=== PATIENT | female | born 1990 | race Caucasian/White ===

== ENCOUNTER 2016-12-03 13:35 | Emergency (ER) | payer SELFPAY ==
--- NOTE | 2016-12-15 21:14 | ER ---
ADMIT: 12/03/2016 RM/LOC: ER [facility] MR#: [id number] [facility] [address] [place], [place] [id number] RANDELL PLEITEZ [address] [place] [address] Emergency Room Report SEX: F AGE: 26 : 1990 DATE: 12/03/2016 ADDENDUM: CHIEF COMPLAINT: Anxiety. HISTORY OF PRESENT ILLNESS: This is a 26-year-old, who was picked up by the police. She had high blood pressure when they were checking her in, so brought her into the emergency room. Upon arrival, her blood pressure was a 122/60 with a pulse of 122, temp 98.6, respirations 18, and sats 98% on room air. She denies any symptoms, just said she was very anxious. She has a history of anxiety. She has been cleared to go to [facility]. CLINICAL IMPRESSION: Anxiety. GIDEON Haynes / Thompson Jeong MD / yokasta JOB #: [id number] CC: Thompson Jeong MD, Attending Physician UNKNOWN, Family Physician
== END 2016-12-03 13:48 | disposition home or self-care (01) ==
LOC: ER 13:35
DX: F41.9 Anxiety disorder, unspecified (principal); F17.210 Nicotine dependence, cigarettes, uncomplicated; Z88.8 Allergy status to other drugs, medicaments and biological substances